=== PATIENT | male | born 1965 | race Caucasian/White ===

== ENCOUNTER → 2018-01-16 | Outpatient (CLI) | payer OTHER ==
--- NOTE | 2018-01-16 12:40 | DIAGNOSTIC IMAGING REPORT ---
R RIBS UNILATERAL MIN 2 VIEWS CLINICAL HISTORY: Right-sided rib pain. Trauma COMPARISON STUDY: No previous studies for comparison. FINDINGS: The erect chest reveals no pneumothorax. There are bibasilar opacities, likely atelectatic. No acute right-sided rib fractures are visualized. IMPRESSION: 1. No evidence of pneumothorax 2. No acute fractures identified 3. Bibasilar opacities, likely atelectatic. Electronically signed by: Victoriano Hodge M.D. 01/16/2018 12:39 PM Dictated Date/Time: 01/16/2018 12:38 PM
== END | disposition home or self-care (01) ==
LOC: C.RAD1850 12:16
PROVIDERS: ATTEND Student in an Organized Health Care Education/Training Program
DX: R07.81 Pleurodynia (principal)